=== PATIENT | female | born 1935 | race Caucasian/White ===

== ENCOUNTER 2021-07-05 08:01 | Inpatient (IN) ==
[2021-07-06] MEDS ORDERED: Nitroglycerin 0.4 MG TAB.SUBL SL PRN (17:13)
[2021-07-06] MEDS: Metoprolol XL (24 HR) Succ 25 MG TAB.ER.24H PO SCH (21:53)
[2021-07-06] MEDS: Apixaban 5 MG TABLET PO SCH (21:54)
[2021-07-06] MEDS: rOPINIRole 1 MG TABLET PO SCH (21:54)
[2021-07-06] MEDS: Gabapentin 300 MG CAPSULE PO SCH ×2 (21:55)
[2021-07-06] MEDS: *HR* HYDROcodone/Acet 5/325 mg TABLET PO PRN (23:35)
[2021-07-07] MEDS: Levothyroxine 25 MCG TABLET PO SCH (06:26)
[2021-07-07 07:13] LABS: Basophils % 0.4 %; Eosinophils # 0.1 K/mcL (0.0-0.6); Hematocrit 34.1 % (35.3-44.9); Hemoglobin 11.1 g/dL (11.5-15.4); Immature Granulocytes % 0.6 % (0-4); Lymphocytes # 1.8 K/mcL (0.6-4.6); Lymphocytes % 25.9 %; Mean Corpuscular HGB Conc 32.6 g/dL (31.6-35.5); Mean Corpuscular Hemoglobin 29.4 pg (28.0-33.3); Mean Corpuscular Volume 90.5 fL (83.0-100.0); Mean Platelet Volume 9.8 fL (9.4-12.4); Monocytes # 0.7 K/mcL (0.0-1.3); Monocytes % 10.2 %; Neutrophils # 4.4 K/mcL (1.6-8.9); Platelet Count 286 K/mcL (140-400); Red Blood Count 3.77 M/mcL (3.82-4.97); Red Cell Distribution Width 14.6 % (11.5-14.5); Segmented Neutrophils % 61.9 %
[2021-07-07 07:25] LABS: BUN/Creatinine Ratio 23 (6-26); Blood Urea Nitrogen 14 mg/dL (8-23); Calcium 8.7 mg/dL (8.6-10.3); Carbon Dioxide 26 mEq/L (23-29); Chloride 104 mEq/L (98-107); Glucose 89 mg/dL (70-105); Osmolality,Calculated 288 (280-300); Potassium 3.6 mEq/L (3.5-5.1); Sodium 139 mEq/L (136-145); eGFR For African Americans > 60 (> 60); eGFR For Non-African Americans > 60 (> 60)
[2021-07-07] MEDS: Cyanocobalamin (B-12) 1,000 MCG TABLET PO SCH (09:12)
[2021-07-07] MEDS: Cholecalciferol (D-3) 1,000 UNIT (25MCG) TABLET PO SCH (09:12)
[2021-07-07] MEDS: Pyridoxine (B-6) 50 MG TABLET PO SCH (09:12)
[2021-07-07] MEDS: Apixaban 5 MG TABLET PO SCH ×2 (09:13→22:50)
[2021-07-07] MEDS: Gabapentin 300 MG CAPSULE PO SCH ×4 (09:13→22:50)
[2021-07-07] MEDS: Ascorbic Acid 500 MG TABLET PO SCH (09:13)
[2021-07-07] MEDS: Metoprolol XL (24 HR) Succ 25 MG TAB.ER.24H PO SCH ×2 (09:13→22:50)
[2021-07-07] MEDS: Multivit/Ca/Min/Fe/FA 1 TAB TABLET PO SCH (09:13)
[2021-07-07] MEDS: Acetaminophen 325 MG TABLET PO PRN (14:35)
[2021-07-07] MEDS: rOPINIRole 1 MG TABLET PO SCH (22:50)
[2021-07-08] MEDS: Levothyroxine 25 MCG TABLET PO SCH (05:43)
[2021-07-08] MEDS: Pyridoxine (B-6) 50 MG TABLET PO SCH (10:43)
[2021-07-08] MEDS: Multivit/Ca/Min/Fe/FA 1 TAB TABLET PO SCH (10:43)
[2021-07-08] MEDS: Cholecalciferol (D-3) 1,000 UNIT (25MCG) TABLET PO SCH (10:43)
[2021-07-08] MEDS: Ascorbic Acid 500 MG TABLET PO SCH (10:43)
[2021-07-08] MEDS: Gabapentin 300 MG CAPSULE PO SCH ×4 (10:43→23:47)
[2021-07-08] MEDS: Apixaban 5 MG TABLET PO SCH ×2 (10:43→23:45)
[2021-07-08] MEDS: Aspirin 81 MG TAB.CHEW PO SCH (10:43)
[2021-07-08] MEDS: hydroCHLOROthiazide 25 MG TABLET PO SCH (10:43)
[2021-07-08] MEDS: Cyanocobalamin (B-12) 1,000 MCG TABLET PO SCH (10:43)
[2021-07-08] MEDS: Metoprolol XL (24 HR) Succ 25 MG TAB.ER.24H PO SCH ×2 (10:44→23:46)
[2021-07-08] MEDS: Sennosides/Docusate Sodium TABLET PO SCH (23:44)
[2021-07-08] MEDS: rOPINIRole 1 MG TABLET PO SCH (23:45)
[2021-07-08] MEDS: *HR* HYDROcodone/Acet 5/325 mg TABLET PO PRN (23:47)
[2021-07-09] MEDS: Levothyroxine 25 MCG TABLET PO SCH (05:55)
[2021-07-09] MEDS: Ascorbic Acid 500 MG TABLET PO SCH (08:12)
[2021-07-09] MEDS: Cholecalciferol (D-3) 1,000 UNIT (25MCG) TABLET PO SCH (08:12)
[2021-07-09] MEDS: Gabapentin 300 MG CAPSULE PO SCH ×4 (08:13→21:12)
[2021-07-09] MEDS: Metoprolol XL (24 HR) Succ 25 MG TAB.ER.24H PO SCH ×2 (08:13→21:12)
[2021-07-09] MEDS: Sennosides/Docusate Sodium TABLET PO SCH ×2 (08:13→21:12)
[2021-07-09] MEDS: Pyridoxine (B-6) 50 MG TABLET PO SCH (08:13)
[2021-07-09] MEDS: hydroCHLOROthiazide 25 MG TABLET PO SCH (08:13)
[2021-07-09] MEDS: Multivit/Ca/Min/Fe/FA 1 TAB TABLET PO SCH (08:13)
[2021-07-09] MEDS: Aspirin 81 MG TAB.CHEW PO SCH (08:13)
[2021-07-09] MEDS: Cyanocobalamin (B-12) 1,000 MCG TABLET PO SCH (08:13)
[2021-07-09] MEDS: Apixaban 5 MG TABLET PO SCH ×2 (08:13→21:12)
[2021-07-09] MEDS: rOPINIRole 1 MG TABLET PO SCH (21:11)
[2021-07-09] MEDS: *HR* HYDROcodone/Acet 5/325 mg TABLET PO PRN (21:11)
[2021-07-10] MEDS: Levothyroxine 25 MCG TABLET PO SCH (06:06)
[2021-07-10] MEDS: Aspirin 81 MG TAB.CHEW PO SCH (07:40)
[2021-07-10] MEDS: Multivit/Ca/Min/Fe/FA 1 TAB TABLET PO SCH (07:40)
[2021-07-10] MEDS: Cholecalciferol (D-3) 1,000 UNIT (25MCG) TABLET PO SCH (07:40)
[2021-07-10] MEDS: Sennosides/Docusate Sodium TABLET PO SCH ×2 (07:40→21:02)
[2021-07-10] MEDS: Metoprolol XL (24 HR) Succ 25 MG TAB.ER.24H PO SCH ×2 (07:40→21:02)
[2021-07-10] MEDS: Gabapentin 300 MG CAPSULE PO SCH ×4 (07:40→21:02)
[2021-07-10] MEDS: Pyridoxine (B-6) 50 MG TABLET PO SCH (07:41)
[2021-07-10] MEDS: Apixaban 5 MG TABLET PO SCH ×2 (07:41→21:02)
[2021-07-10] MEDS: hydroCHLOROthiazide 25 MG TABLET PO SCH (07:41)
[2021-07-10] MEDS: Cyanocobalamin (B-12) 1,000 MCG TABLET PO SCH (07:41)
[2021-07-10] MEDS: Ascorbic Acid 500 MG TABLET PO SCH (07:41)
[2021-07-10] MEDS: Acetaminophen 325 MG TABLET PO PRN (15:22)
[2021-07-10] MEDS: rOPINIRole 1 MG TABLET PO SCH (21:02)
[2021-07-10] MEDS: *HR* HYDROcodone/Acet 5/325 mg TABLET PO PRN (21:09)
[2021-07-11] MEDS: Levothyroxine 25 MCG TABLET PO SCH (06:08)
[2021-07-11] MEDS: Cholecalciferol (D-3) 1,000 UNIT (25MCG) TABLET PO SCH (09:13)
[2021-07-11] MEDS: Ascorbic Acid 500 MG TABLET PO SCH (09:14)
[2021-07-11] MEDS: Pyridoxine (B-6) 50 MG TABLET PO SCH (09:14)
[2021-07-11] MEDS: Aspirin 81 MG TAB.CHEW PO SCH (09:14)
[2021-07-11] MEDS: Cyanocobalamin (B-12) 1,000 MCG TABLET PO SCH (09:14)
[2021-07-11] MEDS: Apixaban 5 MG TABLET PO SCH ×2 (09:14→21:49)
[2021-07-11] MEDS: Metoprolol XL (24 HR) Succ 25 MG TAB.ER.24H PO SCH ×2 (09:14→21:49)
[2021-07-11] MEDS: hydroCHLOROthiazide 25 MG TABLET PO SCH (09:14)
[2021-07-11] MEDS: Multivit/Ca/Min/Fe/FA 1 TAB TABLET PO SCH (09:15)
[2021-07-11] MEDS: Gabapentin 300 MG CAPSULE PO SCH ×4 (09:15→21:49)
[2021-07-11] MEDS: Sennosides/Docusate Sodium TABLET PO SCH ×2 (09:15→21:49)
[2021-07-11 10:25] LABS: Bilirubin,Urine Negative (Negative); Blood,Urine Trace-intact (Negative); Clarity,Urine Clear (Clear); Color,Urine Yellow (Yellow); Glucose,Urine (UA) Normal (Normal); Ketones,Urine Negative (Negative); Leukocyte Esterase,Urine Small (Negative); Nitrite,Urine Negative (Negative); Protein,Urine Negative (Neg-Trace); Urobilinogen,Urine Normal (Normal)
[2021-07-11 10:42] LABS: Bacteria,Urine Moderate per hpf (None-Few); RBC,Urine 0-3 per hpf (0-3)
[2021-07-11] MEDS: Acetaminophen 325 MG TABLET PO PRN (15:08)
[2021-07-11] MEDS: *HR* HYDROcodone/Acet 5/325 mg TABLET PO PRN (21:47)
[2021-07-11] MEDS: rOPINIRole 1 MG TABLET PO SCH (21:49)
[2021-07-12] MEDS: Levothyroxine 25 MCG TABLET PO SCH (06:52)
[2021-07-12] MEDS: Cholecalciferol (D-3) 1,000 UNIT (25MCG) TABLET PO SCH (08:43)
[2021-07-12] MEDS: Pyridoxine (B-6) 50 MG TABLET PO SCH (08:44)
[2021-07-12] MEDS: Cyanocobalamin (B-12) 1,000 MCG TABLET PO SCH (08:44)
[2021-07-12] MEDS: Aspirin 81 MG TAB.CHEW PO SCH (08:44)
[2021-07-12] MEDS: Multivit/Ca/Min/Fe/FA 1 TAB TABLET PO SCH (08:44)
[2021-07-12] MEDS: Ascorbic Acid 500 MG TABLET PO SCH (08:44)
[2021-07-12] MEDS: Sennosides/Docusate Sodium TABLET PO SCH ×2 (08:45→21:58)
[2021-07-12] MEDS: Apixaban 5 MG TABLET PO SCH ×2 (08:45→22:00)
[2021-07-12] MEDS: hydroCHLOROthiazide 25 MG TABLET PO SCH (08:45)
[2021-07-12] MEDS: Metoprolol XL (24 HR) Succ 25 MG TAB.ER.24H PO SCH ×2 (08:45→22:00)
[2021-07-12] MEDS: Gabapentin 300 MG CAPSULE PO SCH ×4 (08:45→21:59)
[2021-07-12] MEDS: Acetaminophen 325 MG TABLET PO PRN (11:58)
[2021-07-12] MEDS: rOPINIRole 1 MG TABLET PO SCH (21:58)
[2021-07-13] MEDS: *HR* HYDROcodone/Acet 5/325 mg TABLET PO PRN (05:38)
[2021-07-13] MEDS: Levothyroxine 25 MCG TABLET PO SCH (06:22)
[2021-07-13] MEDS: Pyridoxine (B-6) 50 MG TABLET PO SCH (08:38)
[2021-07-13] MEDS: Metoprolol XL (24 HR) Succ 25 MG TAB.ER.24H PO SCH ×2 (08:38→21:50)
[2021-07-13] MEDS: Nitrofurantoin (BID) 100 MG CAPSULE PO SCH ×2 (08:38→17:50)
[2021-07-13] MEDS: hydroCHLOROthiazide 25 MG TABLET PO SCH (08:38)
[2021-07-13] MEDS: Multivit/Ca/Min/Fe/FA 1 TAB TABLET PO SCH (08:39)
[2021-07-13] MEDS: Gabapentin 300 MG CAPSULE PO SCH ×4 (08:39→21:50)
[2021-07-13] MEDS: Sennosides/Docusate Sodium TABLET PO SCH ×2 (08:39→21:51)
[2021-07-13] MEDS: Aspirin 81 MG TAB.CHEW PO SCH (08:39)
[2021-07-13] MEDS: Ascorbic Acid 500 MG TABLET PO SCH (08:39)
[2021-07-13] MEDS: Cholecalciferol (D-3) 1,000 UNIT (25MCG) TABLET PO SCH (08:39)
[2021-07-13] MEDS: Apixaban 5 MG TABLET PO SCH ×2 (08:39→21:50)
[2021-07-13] MEDS: Cyanocobalamin (B-12) 1,000 MCG TABLET PO SCH (08:40)
[2021-07-13] MEDS: Preparation H Ointment 57 GM TUBE RC SCH ×2 (08:40→14:36)
[2021-07-13] MEDS: Acetaminophen 325 MG TABLET PO PRN (15:31)
[2021-07-13] MEDS: rOPINIRole 1 MG TABLET PO SCH (21:50)
[2021-07-14] MEDS: Levothyroxine 25 MCG TABLET PO SCH (06:38)
[2021-07-14] MEDS: Metoprolol XL (24 HR) Succ 25 MG TAB.ER.24H PO SCH ×2 (07:36→20:24)
[2021-07-14] MEDS: Gabapentin 300 MG CAPSULE PO SCH ×4 (07:36→20:24)
[2021-07-14] MEDS: Cyanocobalamin (B-12) 1,000 MCG TABLET PO SCH (07:36)
[2021-07-14] MEDS: Apixaban 5 MG TABLET PO SCH ×2 (07:36→20:24)
[2021-07-14] MEDS: Ascorbic Acid 500 MG TABLET PO SCH (07:36)
[2021-07-14] MEDS: Pyridoxine (B-6) 50 MG TABLET PO SCH (07:36)
[2021-07-14] MEDS: Aspirin 81 MG TAB.CHEW PO SCH (07:36)
[2021-07-14] MEDS: Cholecalciferol (D-3) 1,000 UNIT (25MCG) TABLET PO SCH (07:37)
[2021-07-14] MEDS: hydroCHLOROthiazide 25 MG TABLET PO SCH (07:37)
[2021-07-14] MEDS: Multivit/Ca/Min/Fe/FA 1 TAB TABLET PO SCH (07:37)
[2021-07-14] MEDS: Nitrofurantoin (BID) 100 MG CAPSULE PO SCH ×2 (08:54→16:17)
[2021-07-14] MEDS: Sennosides/Docusate Sodium TABLET PO SCH ×2 (08:54→20:22)
[2021-07-14] MEDS: Preparation H Ointment 57 GM TUBE RC SCH ×2 (08:54→20:25)
[2021-07-14] MEDS: Acetaminophen 325 MG TABLET PO PRN (13:47)
[2021-07-14] MEDS: *HR* HYDROcodone/Acet 5/325 mg TABLET PO PRN (18:11)
[2021-07-14] MEDS: rOPINIRole 1 MG TABLET PO SCH (20:22)
[2021-07-15] MEDS: Levothyroxine 25 MCG TABLET PO SCH (05:25)
[2021-07-15] MEDS: Nitrofurantoin (BID) 100 MG CAPSULE PO SCH ×2 (08:43→16:06)
[2021-07-15] MEDS: Multivit/Ca/Min/Fe/FA 1 TAB TABLET PO SCH (08:43)
[2021-07-15] MEDS: hydroCHLOROthiazide 25 MG TABLET PO SCH (08:43)
[2021-07-15] MEDS: Metoprolol XL (24 HR) Succ 25 MG TAB.ER.24H PO SCH ×2 (08:43→20:09)
[2021-07-15] MEDS: Gabapentin 300 MG CAPSULE PO SCH ×4 (08:43→20:08)
[2021-07-15] MEDS: Cholecalciferol (D-3) 1,000 UNIT (25MCG) TABLET PO SCH (08:43)
[2021-07-15] MEDS: Aspirin 81 MG TAB.CHEW PO SCH (08:44)
[2021-07-15] MEDS: Apixaban 5 MG TABLET PO SCH ×2 (08:44→20:09)
[2021-07-15] MEDS: Sennosides/Docusate Sodium TABLET PO SCH ×2 (08:44→20:08)
[2021-07-15] MEDS: Preparation H Ointment 57 GM TUBE RC SCH ×2 (08:45→20:09)
[2021-07-15] MEDS: Cyanocobalamin (B-12) 1,000 MCG TABLET PO SCH (08:45)
[2021-07-15] MEDS: Pyridoxine (B-6) 50 MG TABLET PO SCH (08:49)
[2021-07-15] MEDS: Ascorbic Acid 500 MG TABLET PO SCH (09:12)
[2021-07-15] MEDS: rOPINIRole 1 MG TABLET PO SCH (20:07)
[2021-07-16] MEDS: *HR* HYDROcodone/Acet 5/325 mg TABLET PO PRN ×2 (02:53→21:20)
[2021-07-16] MEDS: Levothyroxine 25 MCG TABLET PO SCH (06:36)
[2021-07-16 08:14] LABS: Hematocrit 33.1 % (35.3-44.9); Hemoglobin 10.7 g/dL (11.5-15.4); Mean Corpuscular HGB Conc 32.3 g/dL (31.6-35.5); Mean Corpuscular Hemoglobin 29.3 pg (28.0-33.3); Mean Corpuscular Volume 90.7 fL (83.0-100.0); Mean Platelet Volume 9.6 fL (9.4-12.4); Platelet Count 265 K/mcL (140-400); Red Blood Count 3.65 M/mcL (3.82-4.97); Red Cell Distribution Width 14.6 % (11.5-14.5); White Blood Count 7.1 K/mcL (4.3-11.1)
[2021-07-16 08:38] LABS: BUN/Creatinine Ratio 21 (6-26); Blood Urea Nitrogen 15 mg/dL (8-23); Calcium 8.9 mg/dL (8.6-10.3); Carbon Dioxide 30 mEq/L (23-29); Chloride 98 mEq/L (98-107); Glucose 95 mg/dL (70-105); Osmolality,Calculated 287 (280-300); Potassium 3.3 mEq/L (3.5-5.1); Sodium 138 mEq/L (136-145); eGFR For African Americans > 60 (> 60); eGFR For Non-African Americans > 60 (> 60)
[2021-07-16] MEDS: Cholecalciferol (D-3) 1,000 UNIT (25MCG) TABLET PO SCH (10:42)
[2021-07-16] MEDS: Aspirin 81 MG TAB.CHEW PO SCH (10:42)
[2021-07-16] MEDS: Gabapentin 300 MG CAPSULE PO SCH ×4 (10:42→21:16)
[2021-07-16] MEDS: Sennosides/Docusate Sodium TABLET PO SCH ×2 (10:43→21:16)
[2021-07-16] MEDS: Preparation H Ointment 57 GM TUBE RC SCH ×2 (10:43→23:20)
[2021-07-16] MEDS: hydroCHLOROthiazide 25 MG TABLET PO SCH (10:43)
[2021-07-16] MEDS: Multivit/Ca/Min/Fe/FA 1 TAB TABLET PO SCH (10:43)
[2021-07-16] MEDS: Metoprolol XL (24 HR) Succ 25 MG TAB.ER.24H PO SCH ×2 (10:43→21:16)
[2021-07-16] MEDS: Apixaban 5 MG TABLET PO SCH ×2 (10:43→21:16)
[2021-07-16] MEDS: Cyanocobalamin (B-12) 1,000 MCG TABLET PO SCH (10:43)
[2021-07-16] MEDS: Ascorbic Acid 500 MG TABLET PO SCH (10:43)
[2021-07-16] MEDS: Nitrofurantoin (BID) 100 MG CAPSULE PO SCH ×2 (10:43→18:23)
[2021-07-16] MEDS: Pyridoxine (B-6) 50 MG TABLET PO SCH (10:55)
[2021-07-16] MEDS: rOPINIRole 1 MG TABLET PO SCH (21:16)
[2021-07-17] MEDS: Levothyroxine 25 MCG TABLET PO SCH (05:44)
[2021-07-17] MEDS: Aspirin 81 MG TAB.CHEW PO SCH (09:36)
[2021-07-17] MEDS: Metoprolol XL (24 HR) Succ 25 MG TAB.ER.24H PO SCH ×2 (09:36→20:05)
[2021-07-17] MEDS: Ascorbic Acid 500 MG TABLET PO SCH (09:36)
[2021-07-17] MEDS: Multivit/Ca/Min/Fe/FA 1 TAB TABLET PO SCH (09:36)
[2021-07-17] MEDS: hydroCHLOROthiazide 25 MG TABLET PO SCH (09:36)
[2021-07-17] MEDS: Cholecalciferol (D-3) 1,000 UNIT (25MCG) TABLET PO SCH (09:36)
[2021-07-17] MEDS: Gabapentin 300 MG CAPSULE PO SCH ×4 (09:37→20:05)
[2021-07-17] MEDS: Pyridoxine (B-6) 50 MG TABLET PO SCH (09:37)
[2021-07-17] MEDS: Sennosides/Docusate Sodium TABLET PO SCH ×2 (09:37→20:08)
[2021-07-17] MEDS: Nitrofurantoin (BID) 100 MG CAPSULE PO SCH ×2 (09:37→15:17)
[2021-07-17] MEDS: Cyanocobalamin (B-12) 1,000 MCG TABLET PO SCH (09:38)
[2021-07-17] MEDS: Apixaban 5 MG TABLET PO SCH ×2 (09:38→20:05)
[2021-07-17] MEDS: Preparation H Ointment 57 GM TUBE RC SCH ×2 (09:46→20:06)
[2021-07-17] MEDS: Acetaminophen 325 MG TABLET PO PRN (15:17)
[2021-07-17] MEDS: *HR* HYDROcodone/Acet 5/325 mg TABLET PO PRN (20:05)
[2021-07-17] MEDS: rOPINIRole 1 MG TABLET PO SCH (20:05)
[2021-07-18] MEDS: Levothyroxine 25 MCG TABLET PO SCH (05:36)
[2021-07-18] MEDS: *HR* HYDROcodone/Acet 5/325 mg TABLET PO PRN ×2 (05:58→20:47)
[2021-07-18] MEDS: Cyanocobalamin (B-12) 1,000 MCG TABLET PO SCH (08:32)
[2021-07-18] MEDS: Multivit/Ca/Min/Fe/FA 1 TAB TABLET PO SCH (08:32)
[2021-07-18] MEDS: Apixaban 5 MG TABLET PO SCH (08:32)
[2021-07-18] MEDS: Pyridoxine (B-6) 50 MG TABLET PO SCH (08:32)
[2021-07-18] MEDS: Metoprolol XL (24 HR) Succ 25 MG TAB.ER.24H PO SCH ×2 (08:32→20:47)
[2021-07-18] MEDS: Ascorbic Acid 500 MG TABLET PO SCH (08:32)
[2021-07-18] MEDS: hydroCHLOROthiazide 25 MG TABLET PO SCH (08:32)
[2021-07-18] MEDS: Sennosides/Docusate Sodium TABLET PO SCH ×2 (08:32→20:47)
[2021-07-18] MEDS: Nitrofurantoin (BID) 100 MG CAPSULE PO SCH ×2 (08:32→16:50)
[2021-07-18] MEDS: Cholecalciferol (D-3) 1,000 UNIT (25MCG) TABLET PO SCH (08:32)
[2021-07-18] MEDS: Gabapentin 300 MG CAPSULE PO SCH ×4 (08:32→20:48)
[2021-07-18] MEDS: Aspirin 81 MG TAB.CHEW PO SCH (08:32)
[2021-07-18] MEDS: Preparation H Ointment 57 GM TUBE RC SCH ×2 (08:33→20:48)
[2021-07-18 10:47] LABS: Hemoglobin 10.5 g/dL (11.5-15.4); Mean Corpuscular HGB Conc 32.8 g/dL (31.6-35.5); Mean Corpuscular Hemoglobin 29.6 pg (28.0-33.3); Mean Corpuscular Volume 90.1 fL (83.0-100.0); Mean Platelet Volume 9.8 fL (9.4-12.4); Platelet Count 233 K/mcL (140-400); Red Blood Count 3.55 M/mcL (3.82-4.97); Red Cell Distribution Width 14.6 % (11.5-14.5); White Blood Count 8.2 K/mcL (4.3-11.1)
[2021-07-18 11:09] LABS: BUN/Creatinine Ratio 22 (6-26); Blood Urea Nitrogen 17 mg/dL (8-23); Calcium 8.9 mg/dL (8.6-10.3); Carbon Dioxide 27 mEq/L (23-29); Chloride 97 mEq/L (98-107); Glucose 156 mg/dL (70-105); Osmolality,Calculated 283 (280-300); Potassium 3.2 mEq/L (3.5-5.1); Sodium 134 mEq/L (136-145); eGFR For African Americans > 60 (> 60); eGFR For Non-African Americans > 60 (> 60)
[2021-07-18] MEDS ORDERED: polyethylene glycoL 3350 17 GM POWD.PACK PO PRN (11:45)
[2021-07-18] MEDS ORDERED: Hydrocortisone Acetate 25 MG RECTAL SUPPOSITORY RC STA (13:50)
[2021-07-18] MEDS ORDERED: Hydrocortisone Acetate 25 MG RECTAL SUPPOSITORY RC PRN (13:51)
[2021-07-18] MEDS: polyethylene glycoL 3350 17 GM POWD.PACK PO SCH (14:07)
[2021-07-18] MEDS: Acetaminophen 325 MG TABLET PO PRN (16:51)
[2021-07-18] MEDS: rOPINIRole 1 MG TABLET PO SCH (20:47)
[2021-07-19] MEDS: Levothyroxine 25 MCG TABLET PO SCH (05:53)
[2021-07-19] MEDS: Gabapentin 300 MG CAPSULE PO SCH ×4 (08:06→20:08)
[2021-07-19] MEDS: Ascorbic Acid 500 MG TABLET PO SCH (08:06)
[2021-07-19] MEDS: Pyridoxine (B-6) 50 MG TABLET PO SCH (08:06)
[2021-07-19] MEDS: Sennosides/Docusate Sodium TABLET PO SCH ×2 (08:06→20:09)
[2021-07-19] MEDS: Multivit/Ca/Min/Fe/FA 1 TAB TABLET PO SCH (08:07)
[2021-07-19] MEDS: Cyanocobalamin (B-12) 1,000 MCG TABLET PO SCH (08:07)
[2021-07-19] MEDS: Aspirin 81 MG TAB.CHEW PO SCH (08:07)
[2021-07-19] MEDS: Cholecalciferol (D-3) 1,000 UNIT (25MCG) TABLET PO SCH (08:07)
[2021-07-19] MEDS: polyethylene glycoL 3350 17 GM POWD.PACK PO SCH (08:07)
[2021-07-19] MEDS: hydroCHLOROthiazide 25 MG TABLET PO SCH (08:07)
[2021-07-19] MEDS: Nitrofurantoin (BID) 100 MG CAPSULE PO SCH ×2 (08:07→17:27)
[2021-07-19] MEDS: Metoprolol XL (24 HR) Succ 25 MG TAB.ER.24H PO SCH ×2 (08:08→20:10)
[2021-07-19] MEDS: Preparation H Ointment 57 GM TUBE RC SCH ×2 (08:08→20:11)
[2021-07-19 09:30] LABS: Hematocrit 32.3 % (35.3-44.9); Hemoglobin 10.2 g/dL (11.5-15.4)
[2021-07-19] MEDS: Acetaminophen 325 MG TABLET PO PRN (17:30)
[2021-07-19] MEDS: *HR* HYDROcodone/Acet 5/325 mg TABLET PO PRN (20:09)
[2021-07-19] MEDS: Apixaban 5 MG TABLET PO SCH (20:09)
[2021-07-19] MEDS: rOPINIRole 1 MG TABLET PO SCH (20:10)
[2021-07-20] MEDS: Levothyroxine 25 MCG TABLET PO SCH (05:41)
[2021-07-20 07:16] LABS: Hematocrit 30.8 % (35.3-44.9); Mean Corpuscular HGB Conc 32.5 g/dL (31.6-35.5); Mean Corpuscular Hemoglobin 29.5 pg (28.0-33.3); Mean Corpuscular Volume 90.9 fL (83.0-100.0); Mean Platelet Volume 10.3 fL (9.4-12.4); Platelet Count 225 K/mcL (140-400); Red Blood Count 3.39 M/mcL (3.82-4.97); Red Cell Distribution Width 14.6 % (11.5-14.5); White Blood Count 6.6 K/mcL (4.3-11.1)
[2021-07-20 07:35] LABS: BUN/Creatinine Ratio 22 (6-26); Blood Urea Nitrogen 14 mg/dL (8-23); Calcium 8.9 mg/dL (8.6-10.3); Carbon Dioxide 30 mEq/L (23-29); Chloride 99 mEq/L (98-107); Glucose 95 mg/dL (70-105); Osmolality,Calculated 284 (280-300); Potassium 3.2 mEq/L (3.5-5.1); Sodium 137 mEq/L (136-145); eGFR For African Americans > 60 (> 60); eGFR For Non-African Americans > 60 (> 60)
[2021-07-20] MEDS: Multivit/Ca/Min/Fe/FA 1 TAB TABLET PO SCH (10:43)
[2021-07-20] MEDS: Cholecalciferol (D-3) 1,000 UNIT (25MCG) TABLET PO SCH (10:44)
[2021-07-20] MEDS: Cyanocobalamin (B-12) 1,000 MCG TABLET PO SCH (10:45)
[2021-07-20] MEDS: Apixaban 5 MG TABLET PO SCH ×2 (10:45→21:26)
[2021-07-20] MEDS: Gabapentin 300 MG CAPSULE PO SCH ×4 (10:45→21:24)
[2021-07-20] MEDS: Nitrofurantoin (BID) 100 MG CAPSULE PO SCH (10:45)
[2021-07-20] MEDS: Aspirin 81 MG TAB.CHEW PO SCH (10:45)
[2021-07-20] MEDS: Ascorbic Acid 500 MG TABLET PO SCH (10:46)
[2021-07-20] MEDS: Sennosides/Docusate Sodium TABLET PO SCH ×2 (10:46→21:25)
[2021-07-20] MEDS: Metoprolol XL (24 HR) Succ 25 MG TAB.ER.24H PO SCH ×2 (10:51→21:24)
[2021-07-20] MEDS: Pyridoxine (B-6) 50 MG TABLET PO SCH (10:51)
[2021-07-20] MEDS: polyethylene glycoL 3350 17 GM POWD.PACK PO SCH (10:52)
[2021-07-20] MEDS: Preparation H Ointment 57 GM TUBE RC SCH ×2 (10:52→21:26)
[2021-07-20] MEDS: hydroCHLOROthiazide 25 MG TABLET PO SCH (10:52)
[2021-07-20] MEDS: *HR* HYDROcodone/Acet 5/325 mg TABLET PO PRN (18:07)
[2021-07-20] MEDS: rOPINIRole 1 MG TABLET PO SCH (21:24)
[2021-07-20] MEDS: Acetaminophen 325 MG TABLET PO PRN (21:25)
[2021-07-21] MEDS: Levothyroxine 25 MCG TABLET PO SCH (06:30)
[2021-07-21] MEDS: Gabapentin 300 MG CAPSULE PO SCH (07:55)
[2021-07-21] MEDS: Apixaban 5 MG TABLET PO SCH (07:55)
[2021-07-21] MEDS: Metoprolol XL (24 HR) Succ 25 MG TAB.ER.24H PO SCH (07:56)
[2021-07-21] MEDS: Pyridoxine (B-6) 50 MG TABLET PO SCH (07:56)
[2021-07-21] MEDS: Ascorbic Acid 500 MG TABLET PO SCH (07:56)
[2021-07-21] MEDS: hydroCHLOROthiazide 25 MG TABLET PO SCH (07:56)
[2021-07-21] MEDS: Cyanocobalamin (B-12) 1,000 MCG TABLET PO SCH (07:56)
[2021-07-21] MEDS: Cholecalciferol (D-3) 1,000 UNIT (25MCG) TABLET PO SCH (07:56)
[2021-07-21] MEDS: Aspirin 81 MG TAB.CHEW PO SCH (07:56)
[2021-07-21] MEDS: Sennosides/Docusate Sodium TABLET PO SCH (07:56)
[2021-07-21] MEDS: Multivit/Ca/Min/Fe/FA 1 TAB TABLET PO SCH (07:56)
[2021-07-21] MEDS: polyethylene glycoL 3350 17 GM POWD.PACK PO SCH (07:58)
[2021-07-21] MEDS: Preparation H Ointment 57 GM TUBE RC SCH (07:58)
[2021-07-22 07:51] VITALS: BP 154/79; PULSE 80; RESP 17; TEMP 98.1; O2SAT 94
== END 2021-07-21 14:34 | disposition home or self-care (01) | DRG 281 ==
LOC: INPPIK 07-06 18:15
PROVIDERS: ADMIT Internal Medicine; ATTEND Internal Medicine

== ENCOUNTER 2021-12-27 09:47 | Observation (INO) ==
[2021-12-27] MEDS ORDERED: DilTIAZem 50 MG/50 ML IV.SOLN IVC SCH (10:00)
[2021-12-27 10:13] LABS: Basophils % 0.5 %; Eosinophils % 0.3 %; Hemoglobin 10.2 g/dL (11.5-15.4); Immature Granulocytes % 0.5 % (0-4); Lymphocytes % 15.5 %; Mean Corpuscular HGB Conc 31.9 g/dL (31.6-35.5); Mean Corpuscular Hemoglobin 25.4 pg (28.0-33.3); Mean Corpuscular Volume 79.8 fL (83.0-100.0); Mean Platelet Volume 9.3 fL (9.4-12.4); Monocytes # 0.6 K/mcL (0.0-1.3); Monocytes % 9.2 %; Neutrophils # 4.6 K/mcL (1.6-8.9); Platelet Count 263 K/mcL (140-400); Red Blood Count 4.01 M/mcL (3.82-4.97); Red Cell Distribution Width 16.6 % (11.5-14.5); White Blood Count 6.2 K/mcL (4.3-11.1)
[2021-12-27] MEDS ORDERED: DilTIAZem 50 MG in 0.9 % Sodium Chloride 40 ML IVC SCH (10:15)
[2021-12-27 10:21] LABS: INR 1.3; Prothrombin Time 14.8 Seconds (9.4-12.1)
[2021-12-27 10:28] LABS: BUN/Creatinine Ratio 25 (6-26); Blood Urea Nitrogen 18 mg/dL (8-23); Calcium 9.3 mg/dL (8.6-10.3); Carbon Dioxide 28 mEq/L (23-29); Chloride 92 mEq/L (98-107); Glucose 171 mg/dL (70-105); Magnesium 1.5 mg/dL (1.6-2.6); Osmolality,Calculated 276 (280-300); Potassium 3.1 mEq/L (3.5-5.1); Sodium 130 mEq/L (136-145); eGFR For African Americans > 60 (> 60); eGFR For Non-African Americans > 60 (> 60)
[2021-12-27] MEDS ORDERED: Potassium Chloride Elixir 20 MEQ/15 ML UDC PO ONE (10:29)
[2021-12-27 10:44] LABS: Troponin I 0.04 ng/mL (< 0.04)
[2021-12-27] MEDS ORDERED: Naloxone 0.4 MG/ML INJ IVP PRN (11:19)
[2021-12-27] MEDS ORDERED: Ondansetron 4 MG/2 ML VIAL IVP PRN (11:19)
[2021-12-27] MEDS ORDERED: Acetaminophen 325 MG TABLET PO PRN (11:19)
[2021-12-27 13:17] VITALS: RESP 21; TEMP 98.1
[2021-12-27 14:38] VITALS: BP 143/80; PULSE 79; O2SAT 100
[2021-12-27] MEDS: Gabapentin 300 MG CAPSULE PO SCH ×2 (15:06→17:22)
[2021-12-27] MEDS ORDERED: 0.9 % Sodium Chloride 250 ML ONE (18:46)
[2021-12-27] MEDS ORDERED: rOPINIRole 1 MG TABLET PO SCH (21:00)
[2021-12-27] MEDS ORDERED: Gabapentin 300 MG CAPSULE PO SCH (21:00)
[2021-12-27] MEDS ORDERED: Metoprolol XL (24 HR) Succ 25 MG TAB.ER.24H PO SCH (21:00)
[2021-12-27] MEDS ORDERED: Apixaban 5 MG TABLET PO SCH (21:00)
[2021-12-28] MEDS ORDERED: Levothyroxine 25 MCG TABLET PO SCH (06:30)
[2021-12-28] MEDS ORDERED: Aspirin Enteric Coated 81 MG Tablet PO SCH (09:00)
== END 2021-12-27 18:49 | disposition short-term general hospital (02) ==
LOC: INPPIK 09:47 → EMEROOPIK 09:47 → INPPIK 12:35
PROVIDERS: ADMIT Family Medicine; ATTEND Family Medicine